=== PATIENT | male | born 1990 | race Hispanic/Latino ===

== ENCOUNTER → 2020-02-09 | Outpatient (CLI) | payer MEDICARE | LOC: US 10:09 | PROVIDERS: ATTEND Internal Medicine Gastroenterology | DX: R16.0 Hepatomegaly, not elsewhere classified (principal) | CPT/HCPCS: 76700 ==

== ENCOUNTER → 2020-04-04 | Day surgery (SDC) | payer MEDICARE ==
[2020-04-01 10:39] LABS: BASOPHILS % 0.4 % (0.0-1.0); EOSINOPHILS # (AUTO) 0.3 (0.0-0.4); EOSINOPHILS % 3.1 % (0.0-6.0); HEMATOCRIT 40.1 % (38.2-49.6); HEMOGLOBIN 13.3 g/dL (14.0-18.0); LYMPHOCYTES % 25.2 % (18.0-39.1); MEAN CORPUSCULAR HEMOGLOBIN 28.1 pg (28-32); MEAN CORPUSCULAR HGB CONC 33.2 g/dL (31-35); MEAN CORPUSCULAR VOLUME 84.6 fL (81-99); MONOCYTES # (AUTO) 0.7 (0.2-0.8); MONOCYTES % 9.2 % (4.4-11.3); NEUTROPHILS % 61.2 % (38.7-80.0); PLATELET COUNT 261 x10e3/uL (140-360); RED BLOOD COUNT 4.74 x10e6/uL (4.3-5.7); RED CELL DISTRIBUTION WIDTH 14.4 % (11.7-14.4)
[2020-04-01 10:53] LABS: INR 0.84; PROTHROMBIN TIME 11.9 seconds (11.9-14.5)
[2020-04-01 10:54] LABS: PARTIAL THROMBOPLASTIN TIME 29.4 seconds (23.8-35.5)
[2020-04-01 10:57] LABS: ALANINE AMINOTRANSFERASE 186 IU/L (0-55); ALBUMIN 3.5 g/dL (3.5-5.0); ALBUMIN/GLOBULIN RATIO 0.9 (0.8-2.0); ALKALINE PHOSPHATASE 399 IU/L (40-150); ANION GAP 14.9 mmol/L (8-16); BLOOD UREA NITROGEN 18 mg/dL (7-26); BUN/CREATININE RATIO 25 (6-25); CALCIUM 9.7 mg/dL (8.4-10.2); CARBON DIOXIDE 24 mmol/L (22-29); CHLORIDE 106 mmol/L (98-107); CREATININE, SERUM 0.71 mg/dL (0.72-1.25); EST GLOMERULAR FILTRATION RATE > 60 ML/MIN (60-); GLUCOSE 160 mg/dL (74-118); POTASSIUM 3.9 mmol/L (3.5-5.1); SODIUM 141 mmol/L (136-145)
[~2020-04-04] MED LIST: AMLODIPINE BESYL5 MG PO; FENTANYL CITRATE/PF 100MCG/2 ML INJ ONE; GABAPENTIN100 MG PO; METOPROLOL SUCC25 MG PO; MIDAZOLAM HCL 2 MG/2 ML VIAL ONE; PAMELOR10 MG PO; PANTOPRAZOLE SO40 MG PO; PROPOFOL IV EMULSION 10 MG/ML 20 ML VIAL ONE; VITAMIN C250 M1 PO; VITAMIN E400 UNI1 PO
[2020-04-04 14:05] VITALS: BP 127/81
== END | disposition home or self-care (01) ==
LOC: OR 10:18
PROVIDERS: ATTEND Internal Medicine Gastroenterology
DX: K21.9 Gastro-esophageal reflux disease without esophagitis (principal); R16.0 Hepatomegaly, not elsewhere classified; Z01.810 Encounter for preprocedural cardiovascular examination; Z01.812 Encounter for preprocedural laboratory examination; Z01.818 Encounter for other preprocedural examination; Z20.828 Contact with and (suspected) exposure to other viral communicable diseases; E11.9 Type 2 diabetes mellitus without complications; Z86.19 Personal history of other infectious and parasitic diseases; K20.90 Esophagitis, unspecified without bleeding; K29.60 Other gastritis without bleeding
CPT/HCPCS: 36415; 43239; 71046; 80053; 85025; 85610; 85730; 88305; 88312; 93005; J2250; J2704; J3010; U0002

== ENCOUNTER 2024-06-29 13:43 | Emergency (ER) | payer MEDICAID, MEDICARE ==
[~2024-06-29] VITALS: Ht 185.4 cm; Wt 106.3 kg
[~2024-06-29 13:43] MED LIST changes: -FENTANYL CITRATE/PF 100MCG/2 ML INJ ONE; -MIDAZOLAM HCL 2 MG/2 ML VIAL ONE; -PROPOFOL IV EMULSION 10 MG/ML 20 ML VIAL ONE
[2024-06-29] MEDS ORDERED: MUPIROCIN22 GM TOP (14:24)
[2024-06-29] MEDS ORDERED: IBUPROFEN600 MG PO (14:42)
[2024-06-29 14:57] VITALS: PULSE 78; RESP 16; TEMP 97.9; O2SAT 98
== END 2024-06-29 14:43 | disposition home or self-care (01) ==
LOC: FSED 13:51
DX: T22.21 Burn of second degree of forearm (principal); T22.1 Burn of first degree of shoulder and upper limb, except wrist and hand; X12.XXXS Contact with other hot fluids, sequela; E11.9 Type 2 diabetes mellitus without complications
CPT/HCPCS: 99283